=== PATIENT | female | born 2000 | race Two or more races ===

== ENCOUNTER 2024-09-17 12:29 | Emergency (ER) | payer MEDICAID, OTHER ==
[~2024-09-17] VITALS: Ht 162.6 cm; Wt 51.0 kg
[2024-09-17 13:46] VITALS: BP 134/74; PULSE 100; RESP 16; TEMP 98.3; O2SAT 97
[2024-09-17] MEDS ORDERED: ACET-1304 PO (13:49)
[2024-09-17] MEDS ORDERED: CLIN1CAP70 PO (13:49)
--- NOTE | 2024-09-17 13:49 | ED.PDOC ---
Eye-HPI HPI Comments A 23 YEAR OLD FEMALE PRESENTS TO THE ED WITH COMPLAINT OF DENTAL PAIN. PATIENT STATES SHE BROKE A TOOTH ON THE RIGHT UPPER SIDE OF HER MOUTH ABOUT 1 MONTH AGO AND NOTES THAT HER PAIN BECAME WORSE YESTERDAY. PT IS 6 MONTHS AND DENIES PROBLEMS. PATIENT DENIES FEVER, CHILLS, SHORTNESS OF BREATH, CHEST PAIN, ABDOMINAL PAIN, NAUSEA, VOMITING, HEADACHE, OR OTHER COMPLAINTS. NO OTHER SYMPTOMS OR MODIFYING FACTORS AT THIS TIME. PATIENT IS ALERT, ORIENTED X 4, AND HAS STEADY GAIT. Chief Complaint: Tooth Pain Time Seen by MD: 12:36 Primary Care Provider: ISAEL Reviewed Notes: Nurses Notes, Medications, Allergies Allergies: Coded Allergies: NO KNOWN ALLERGIES (Unverified , 09/17/24) Home Meds Active Scripts Acetaminophen (Tylenol Extra Strength Fo) 500 Mg Tab, 650 MG PO TID, #30 TAB Prov:PARVEEN BERRIOS 09/17/24 Clindamycin Hcl (Clindamycin Hcl) 300 Mg Cap, 1 CAP PO TID, #30 CAP Prov:PARVEEN BERRIOS 09/17/24 Information Source: Patient Mode of Arrival: Ambulatory Timing: Days Duration: Since onset, Days Prehospital treatment: None Quality: Pain Lids: Normal Conjunctiva: Normal Cornea: Normal Pupils: Normal EOM: Normal Fundus: Normal Slit lamp exam: Normal Anterior chamber: Normal Mouth Location: Right, Upper, Tooth/Teeth, Gums Mouth: Right, Upper, Premolar ENT Ear Exam: Normal, Normal, Normal Nose: Normal Sinuses: Normal Oropharynx: Normal Onset: Spontaneous Throat Exposed to: None History of: None Last Tetanus: Unknown Modifying factors: Nothing Associated signs and symptoms: Tooth Pain Past Medical History PAST MEDICAL HISTORY: Denies Surgical History: Denies all surgeries PROGRESSIVE CARE UNIT REGISTERED NURSE History: No Pertinent PROGRESSIVE CARE UNIT REGISTERED NURSE History Family History Family History: Reviewed,noncontributory to illness Social History Smoker: Non-Smoker Alcohol: Denies ETOH Use Drugs: Denies Drug Use Lives In: Home Constitutional: denies: chills, diaphoresis, fatigue, fever, malaise, sweats, weakness, others EENTM: reports: mouth pain (RIGHT UPPER DENTAL PAIN); denies: blurred vision, double vision, ear bleeding, ear discharge, ear drainage, ear pain, ear ringing, eye pain, eye redness, hearing loss, mouth swelling, nasal discharge, nose bleeding, nose congestion, nose pain, photophobia, tearing, throat pain, throat swelling, voice changes, others Respiratory: denies: cough, hemoptysis, orthopnea, SOB at rest, shortness of breath, SOB with excertion, stridor, wheezing, others Cardiovascular: denies: chest pain, dizzy spells, diaphoresis, Dyspnea on exertion, edema, irregular heart beat, left arm pain, lightheadedness, palpitations, PND, syncope, others Gastrointestinal: denies: abdomen distended, abdominal pain, blood streaked bowels, constipated, diarrhea, dysphagia, difficulty swallowing, hematemesis, melena, nausea, poor appetite, poor fluid intake, rectal bleeding, rectal pain, vomiting, others Genitourinary: reports: ; denies: abnormal vagina bleeding, burning, dyspareunia, dysuria, flank pain, frequency, hematuria, incontinence, pain, vagina discharge, urgency, others Neurological: denies: dizziness, fainting, headache, left sided numbness, left sided weakness, numbness, paresthesia, pre-existing deficit, right sided numbness, right sided weakness, seizure, speech problems, tingling, tremors, weakness, others Musculoskeletal: denies: back pain, gout, joint pain, joint swelling, muscle pain, muscle stiffness, neck pain, others Integumetry: denies: bruises, change in color, change in hair/nails, dryness, laceration, lesions, lumps, rash, wounds, others Allergic/Immunocompromised: denies: Difficulty Healing, Frequent Infections, Hives, Itching, others Hematologic/Lymphatic: denies: anemia, blood clots, easy bleeding, easy bruising, swollen glands, others Endocrine: denies: excessive hunger, excessive sweating, excessive thirst, excessive urination, flushing, intolerance to cold, intolerance to heat, unexplained weight gain, unexplained weight loss, others Psychiatric: denies: anxiety, bipolar disorder, depression, hopeless, panic disorder, schizophrenia, sleepless, suicidal, others All Other Systems: Reviewed and Negative Physical Exam General Appearance: No Apparent Distress, Normal HEENT: Normal ENT Inspection, PERRL/EOMI, Pharynx Normal, TMs Normal, Other (ERYTHEMA AND SWELLING ON RIGHT UPPER GUM AROUND TOOTH, DENTAL INFECTION, NO FACIAL SWELLING. ) Neck: Full Range of Motion, Non-Tender, Normal, Normal Inspection Respiratory: Chest Non-Tender, Lungs Clear, No Accessory Muscle Use, No Respiratory Distress, Normal Breath Sounds Cardiovascular: No Edema, No JVD, No Murmur, No Gallop, Normal Peripheral Pulses, Regular Rate/Rhythm Breast Exam: Deferred Gastrointestinal: No Organomegaly, Non Tender, No Pulsatile Mass, Normal Bowel Sounds, Soft Genitalia: Deferred Pelvic: Deferred Rectal: Deferred Extremities: No calf tenderness, Normal capillary refill, Normal inspection, Normal range of motion, Non-tender, No pedal edema Musculoskeletal : Apperance: Normal Neurologic: Alert, ambulance attendant II-XII nml as Tested, No Motor Deficits, Normal Affect, Normal Mood, No Sensory Deficits Cerebellar Function: Normal Reflexes: Normal Skin: Dry, Normal Color, Warm Lymphatic: No Adenopathy Was a procedure done? Was a procedure done?: No EENT DIFF Eye: N/A Ear: Otitis Externa, Otitis Media, Dental, Pharyngitis, N/A Nose: N/A Mouth: Other (DENTAL PAIN, DENTAL CARIES, DENTAL INFECTION, DENTAL ABSCESS, GINGIVITIS) Sore Throat: N/A X-Ray, Labs, Meds, VS Vital Signs Date Time Temp Pulse Resp B/P (MAP) Pulse Ox O2 Delivery O2 Flow Rate FiO2 09/17/24 13:46 100 16 97 Room Air 09/17/24 13:46 98.3 100 16 134/74 (94) 97 98.3 09/17/24 13:17 98.3 100 16 134/74 (94) 97 Time of 1ST Reevaluation: 14:04 Reevaluation 1ST: Improved Patient Education/Counseling: Diagnosis, Treatment, Need For Follow Up Family Education/Counseling: Diagnosis, Treatment, Need For Follow Up Medical Screening: No EMC Exist At This Time Departure 1 Departure Time of Disposition: 14:04 Impression: Primary Impression: Dental infection Disposition: 01 HOME / SELF CARE / HOMELESS Condition: Stable Additional Instructions: FOLLOW-UP WITH PCP AND DENTIST IN 1 TO 2 DAYS. TAKE MEDICATIONS PRESCRIBED. RETURN TO ED FOR ANY NEW OR WORSENING SYMPTOMS. e-Prescriptions Acetaminophen (Tylenol Extra Strength Fo) 500 Mg Tab 650 MG PO TID, #30 TAB Prov: PARVEEN BERRIOS 09/17/24 Clindamycin Hcl (Clindamycin Hcl) 300 Mg Cap 1 CAP PO TID, #30 CAP Prov: PARVEEN BERRIOS 09/17/24 Discharged With: Self Critical Care Note Critical Care Time?: No Stability Stability form required: No I personally scribed for PARVEEN BERRIOS ([email or web address]) on 09/17/24 at 13:49. Electronically submitted by Low Hansen ([email or web address]). PARVEEN BERRIOS Sep 17, 2024 13:49
== END 2024-09-17 14:05 | disposition home or self-care (01) ==
LOC: ER 12:29
DX: K04.7 Periapical abscess without sinus (principal)

== ENCOUNTER 2024-10-07 02:19 | Emergency (ER) | payer MEDICAID ==
[~2024-10-07] VITALS: Ht 162.6 cm; Wt 51.5 kg
[~2024-10-07 02:19] MED LIST: ACET-1304 PO; CLIN1CAP70 PO
[2024-10-07] MEDS: SODIUM CHLORIDE 0.9% 1,000 ML IV ONE (03:24)
[2024-10-07] MEDS: ONDANSETRON HCL 4 MG/2 ML VIAL IV ONE ×2 (03:24→04:52)
[2024-10-07 03:30] VITALS: BP 132/84; PULSE 100; RESP 20; TEMP 97.9; O2SAT 97
--- NOTE | 2024-10-07 03:31 | ED.PDOC ---
GI ASSESSMENT HPI Comments THIS IS A 23-YEAR-OLD FEMALE PRESENTS TO THE ED CHIEF COMPLAINT FOOD POISONING. PATIENT STATES AROUND 2 HOURS AGO SHE SOME LEFTOVER ESTONIAN FOOD SHRIMP. SHE NOTES AROUND 15 20 MINUTES AFTER STARTED GETTING SEVERE NAUSEA AND VOMITING. STATES UNABLE TO KEEP ANY FOOD OR LIQUIDS DOWN AT THIS TIME. DENIES DIARRHEA, ABDOMINAL PAIN, FEVER, CHEST PAIN OR SHORTNESS OF BREATH. Chief Complaint: Nausea/Vomiting Time Seen by MD: 02:37 Primary Care Provider: ISAEL Reviewed Notes: Nurses Notes, Medications, Allergies Allergies: Coded Allergies: NO KNOWN ALLERGIES (Unverified , 09/17/24) Home Meds Active Scripts Acetaminophen (Tylenol Extra Strength Fo) 500 Mg Tab, 650 MG PO TID, #30 TAB Prov:PARVEEN BERRIOS 09/17/24 Clindamycin Hcl (Clindamycin Hcl) 300 Mg Cap, 1 CAP PO TID, #30 CAP Prov:PARVEEN BERRIOS 09/17/24 Information Source: Patient Mode of Arrival: Ambulatory Past Medical History Past Medical History (Other): FIBROMYALGIA CONGENITAL HYPOPLASIA Surgical History: Denies all surgeries STONEMASON History: No Pertinent STONEMASON History Family History Family History: Reviewed,noncontributory to illness Social History Smoker: Non-Smoker Alcohol: Denies ETOH Use Drugs: Denies Drug Use Lives In: Home Constitutional: reports: weakness; denies: chills, diaphoresis, fatigue, fever, malaise, sweats, others EENTM: denies: blurred vision, double vision, ear bleeding, ear discharge, ear drainage, ear pain, ear ringing, eye pain, eye redness, hearing loss, mouth pain, mouth swelling, nasal discharge, nose bleeding, nose congestion, nose pain, photophobia, tearing, throat pain, throat swelling, voice changes, others Respiratory: denies: cough, hemoptysis, orthopnea, SOB at rest, shortness of breath, SOB with excertion, stridor, wheezing, others Cardiovascular: denies: chest pain, dizzy spells, diaphoresis, Dyspnea on exertion, edema, irregular heart beat, left arm pain, lightheadedness, palpitations, PND, syncope, others Gastrointestinal: reports: abdominal pain, nausea, vomiting; denies: abdomen distended, blood streaked bowels, constipated, diarrhea, dysphagia, difficulty swallowing, hematemesis, melena, poor appetite, poor fluid intake, rectal bleeding, rectal pain, others Genitourinary: denies: abnormal vagina bleeding, burning, dyspareunia, dysuria, flank pain, frequency, hematuria, incontinence, pain, , vagina discharge, urgency, others Neurological: denies: dizziness, fainting, headache, left sided numbness, left sided weakness, numbness, paresthesia, pre-existing deficit, right sided numbness, right sided weakness, seizure, speech problems, tingling, tremors, weakness, others Musculoskeletal: denies: back pain, gout, joint pain, joint swelling, muscle pain, muscle stiffness, neck pain, others Integumetry: denies: bruises, change in color, change in hair/nails, dryness, laceration, lesions, lumps, rash, wounds, others Allergic/Immunocompromised: denies: Difficulty Healing, Frequent Infections, Hives, Itching, others Hematologic/Lymphatic: denies: anemia, blood clots, easy bleeding, easy bruising, swollen glands, others Endocrine: denies: excessive hunger, excessive sweating, excessive thirst, excessive urination, flushing, intolerance to cold, intolerance to heat, unexplained weight gain, unexplained weight loss, others Psychiatric: denies: anxiety, bipolar disorder, depression, hopeless, panic disorder, schizophrenia, sleepless, suicidal, others Physical Exam General Appearance: No Apparent Distress, Normal HEENT: Normal ENT Inspection, Pharynx Normal, TMs Normal Neck: Full Range of Motion, Non-Tender, Normal, Normal Inspection Respiratory: Chest Non-Tender, Lungs Clear, No Accessory Muscle Use, No Respiratory Distress, Normal Breath Sounds Cardiovascular: No Edema, No JVD, No Murmur, No Gallop, Normal Peripheral Pulses, Regular Rate/Rhythm Breast Exam: Deferred Gastrointestinal: Epigastric, No Organomegaly, Non Tender, No Pulsatile Mass, Soft, Other (HYPER BOWEL SOUNDS X4 QUADRANTS) Genitalia: Deferred Pelvic: Deferred Rectal: Deferred Extremities: Normal capillary refill, Normal inspection, Normal range of motion, Non-tender, No pedal edema Musculoskeletal : Apperance: Normal Neurologic: Alert, traffic sign supervisor II-XII nml as Tested, No Motor Deficits, Normal Affect, Normal Mood, No Sensory Deficits Cerebellar Function: Normal Reflexes: Normal Skin: Dry, Pallor, Warm Lymphatic: No Adenopathy Was a procedure done? Was a procedure done?: No GI differential Dx Differential Diagnosis: Gastroenteritis X-Ray, Labs, Meds, VS Vital Signs Date Time Temp Pulse Resp B/P (MAP) Pulse Ox O2 Delivery O2 Flow Rate FiO2 10/07/24 02:28 97.5 108 22 132/84 (100) 100 Lab Test 10/07/24 03:25 Range/Units POC Glucose 107 H 70-106 mg/dl Current Medications Medications (Trade) Dose Ordered Sig/David Route Start Time Stop Time Status Last Admin Sodium Chloride 1,000 ml @ 1,000 mls/hr Q1H ONCE IV 10/07/24 03:15 10/07/24 04:14 10/07/24 03:24 Ondansetron HCl (Zofran) 4 mg ONCE ONCE IV 10/07/24 03:15 10/07/24 03:16 DC 10/07/24 03:24 X-Ray, Labs, Meds, VS Comment HEP-LOCK STARTED, NORMAL SALINE 1000 ML BOLUS AND ZOFRAN 4 MG IV. PATIENT REPORTS IMPROVEMENT, ABLE TO HOLD DOWN P.O. FLUIDS, REQUESTING DISCHARGE AT THIS TIME. SCRIPT ZOFRAN 4 MG EVERY 8 HOURS NEEDED FOR NAUSEA AND VOMITING. ADVISED TO REST INCREASE P.O. FLUIDS WITH ELECTROLYTES. ER RETURN PRECAUTIONS GIVEN PATIENT INDICATED UNDERSTANDING PATIENT AGREES WITH DISCHARGE PLAN OF CARE. Time of 1ST Reevaluation: 04:09 Reevaluation 1ST: Improved Patient Education/Counseling: Diagnosis, Treatment, Prognosis, Need For Follow Up Family Education/Counseling: No Family Present Departure 1 Departure Time of Disposition: 04:09 Impression: Primary Impression: Food poisoning Additional Impression: Nausea & vomiting Qualified Codes: R11.2 - Nausea with vomiting, unspecified Disposition: 01 HOME / SELF CARE / HOMELESS Condition: Stable e-Prescriptions Ondansetron Odt 4MG Tab (ZOFRAN PO) 4 Mg Tb 4 MG PO TID PRN for 2 Days, #6 TAB ODT TAB-DISSOLVE IN MOUTH, THEN SWALLOW Prov: OLIVER WELLER 10/07/24 Discharged With: Self Critical Care Note Critical Care Time?: No Stability Stability form required: OLIVER Lama Oct 07, 2024 03:31
[2024-10-07] MEDS ORDERED: ZOFR4T PO (04:11)
[2024-10-07] MEDS: FAMOTIDINE (10MG/ML) 2ML VL IV ONE (05:10)
[2024-10-07] MEDS: KETOROLAC TROMETH 30 MG/ML 1ML VIAL IV ONE (05:12)
== END 2024-10-07 05:50 | disposition home or self-care (01) ==
LOC: ER 02:19
DX: A05.9 Bacterial foodborne intoxication, unspecified (principal); M79.7 Fibromyalgia; R53.1 Weakness
CPT/HCPCS: 96361; 96374; 96375; 96376; 99285; J1885; J2405; J3490; J7030; 82962